=== PATIENT | female | born 2000 | race Caucasian/White ===

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

== ENCOUNTER 2019-02-08 01:55 | Inpatient (IN) | payer MEDICAID ==
[2019-02-08] MEDS ORDERED: PENICILLIN G POTASSIUM 5,000,000 UNIT in DEXTROSE 5%-WATER 100 ML IV ONE (02:18)
[2019-02-08] MEDS ORDERED: BETAMET ACET/BETAMET NA INJ 6 MG/1 ML IM ONE (02:20)
[2019-02-08] MEDS ORDERED: MISOPROSTOL 0.2 MG TABLET ONE (02:23)
[2019-02-08] MEDS ORDERED: OXYTOCIN 10 UNIT/ML VIAL ONE (02:23)
[2019-02-08] MEDS ORDERED: PHENYLEPHRINE HCL INJ/PF 10 MG/1 ML SDV ONE (02:24)
[2019-02-08] MEDS ORDERED: FENTANYL CITRATE INJ/PF 100 MCG/2 ML AMPUL ONE (02:24)
[2019-02-08] MEDS ORDERED: BETAMET ACET/BETAMET NA INJ 6 MG/1 ML ONE (02:24)
[2019-02-08] MEDS ORDERED: FENTANYL/BUPIVACAINE/NS/PF 300 MCG/150 ML RTUINJ EPI ONE (02:25)
[2019-02-08] MEDS ORDERED: BUPIVACAINE HCL 0.25 % INJ/PF (2.5 MG/1 ML) 30 ML VIAL ONE (02:25)
[2019-02-08] MEDS ORDERED: PENICILLIN G-K 5 MILLION UNIT VIAL ONE ×2 (02:25→06:07)
[2019-02-08] MEDS ORDERED: OXYTOCIN/NORMAL SALINE 20 UNIT/1,000 ML RTUINJ ONE (02:25)
[2019-02-08] MEDS ORDERED: LIDOCAINE 1% INJ-PF (10 MG/ML) 30 ML SDV ONE (02:25)
[2019-02-08] MEDS ORDERED: EPHEDRINE SULFATE INJ 50 MG/1 ML AMPULE ONE (02:25)
[2019-02-08 02:35] LABS: APPEARANCE,URINE CLEAR; BILIRUBIN,URINE NEGATIVE (NEGATIVE); COLOR,URINE YELLOW; GLUCOSE, URINE NEGATIVE (NEGATIVE); KETONES,URINE NEGATIVE (NEGATIVE); LEUKOCYTE ESTERASE,URINE NEGATIVE (NEGATIVE); NITRITE,URINE NEGATIVE (NEGATIVE); PROTEIN,URINE NEGATIVE (NEGATIVE); URINE SPECIFIC GRAVITY 1.013
[2019-02-08] MEDS: RINGERS SOLUTION,LACTATED 1,000 ML IV PRN ×2 (02:35→06:59)
[2019-02-08 02:53] LABS: URINE AMPHETAMINES SCREEN NEGATIVE; URINE BARBITURATES SCREEN NEGATIVE; URINE BENZODIAZEPINES SCREEN NEGATIVE; URINE COCAINE SCREEN NEGATIVE; URINE METHADONE SCREEN NEGATIVE; URINE PHENCYCLIDINE SCREEN NEGATIVE
[2019-02-08 03:04] LABS: URINE MARIJUANA (THC) SCREEN UNCONFIRMED POSITIVE
[2019-02-08 03:05] LABS: ABSOLUTE LYMPHOCYTES (AUTO) 1.5 10^3/uL (0.5-4.7); ABSOLUTE MONOCYTES (AUTO) 0.4 10^3/uL (0.1-1.4); ABSOLUTE NEUT (AUTO) 10.1 10^3/uL (1.7-8.2); BASOPHILS % (AUTO) 0.2 % (0-2); HEMATOCRIT 34.1 % (36.0-47.0); HEMOGLOBIN 11.5 g/dL (12.0-15.5); LYMPHOCYTES % (AUTO) 12.6 % (13-45); MEAN CORPUSCULAR HEMOGLOBIN 28.3 pg (27.0-33.4); MEAN CORPUSCULAR HGB CONC 33.6 g/dL (32.0-36.0); MEAN CORPUSCULAR VOLUME 84 fl (80-97); MONOCYTES % (AUTO) 3.3 % (3-13); PLATELET COUNT 228 10^3/uL (150-450); RED BLOOD COUNT 4.05 10^6/uL (3.72-5.28); RED CELL DISTRIBUTION WIDTH 13.3 % (11.5-14.0); SEGMENTED NEUTROPHILS % (AUTO) 83.9 % (42-78); TOTAL CELLS COUNTED % (AUTO) 100 %; WHITE BLOOD COUNT 12.1 10^3/uL (4.0-10.5)
--- NOTE | 2019-02-08 03:52 | Admission Physical ---
Datetime Report Generated by CPN: 02/08/2019 03:52 CURRENT ADMISSION Chief Complaint: Suspected Ruptured Membranes Indication for Induction: Not Applicable Admit Impression : Term, Intrauterine Admit Plan: Admit to Unit; Initiate Labor Protocol ALLERGIES Medication Allergies: No Known Allergies (02/08/2019) OBSTETRICAL HISTORY EDC: 03/13/2019 00:00 : 1 Para: 0 Term: 0 : 0 SAB: 0 IAB: 0 Livin (Annotations: Data stored by N on behalf of user) Gestational Diabetes: No Rh Sensitization: No Incompetent Cervix: No NATACHA: No Infertility: No ART Treatment: No Uterine Anomaly: No IUGR: No Hx Previous C/S: No Macrosomia: No Hx Loss/Stillborn: No PIH: No Hx : No Placenta Previa/Abruption: No Depression/PP Depression: No PTL/PROM: Yes Post Hemorrhage: No Current Procedures: Ultrasound; NST Obstetrical History Comments: g1-current , srom at 35 weeks and 2 days SEE RECORDS Alcohol: No Marijuana : Yes Marijuana Comments: patient denies, positive on urine test Cocaine: No Other Illicit Drugs: No Cigarettes: Current Everyday Smoker. 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: No Heart Disease: No Hosp/Surgery: Yes Autoimmune Disorder: No Anesthetic Complications: No Kidney Disease: No Abnormal Pap Smear: No Neuro/Epilepsy: No Psychiatric Disorders: No Other Medical Diseases: No Hepatitis/Liver Disease: No Significant Family History: No Varicosities/Phlebitis: No Trauma/Violence : No Thyroid Dysfunction: No Medical History Comments: smoker, foot surgery, asthma, positive marijuana INFECTIOUS HISTORY Gonorrhea: No Genital Herpes: No Chlamydia: No Tuberculosis: No Syphilis: No Hepatitis: No HIV/AIDS Exposure: No Rash or Viral Illness: No HPV: No PHYSICAL EXAM General: Normal HEENT: Normal Neurologic: Normal Thyroid: Normal Heart: Normal Lungs: Normal Breast: Deferred Back: Normal Abdomen: Normal Genitourinary Exam: Normal Extremities: Normal DTRs: Normal Pelvic Type: Adequate FETUS A EGA: 35.2 Monitoring: External US PLANS FOR LABOR AND DELIVERY Labor and Delivery: None Pain Management: Epidural Feeding Preference: Breast Circumcision: N/A INFORMED CONSENT Signature: with User ID: [email or web address]
[2019-02-08] MEDS ORDERED: PENICILLIN G POTASSIUM 2,500,000 UNIT in DEXTROSE 5%-WATER 50 ML IV SCH (06:19)
[2019-02-08] MEDS ORDERED: ACETAMINOPHEN 650 MG SUPP.RECT PR PRN (06:20)
[2019-02-08] MEDS ORDERED: PROMETHAZINE HCL 25 MG SUPP.RECT PR PRN (06:20)
[2019-02-08] MEDS ORDERED: MEASLES,MUMPS&RUBELLA VACC/PF 0.5 ML VIAL SUBCUT PRN (06:20)
[2019-02-08] MEDS ORDERED: NA PHOS,M-B/NA PHOS,DI-BA (ADULT) 133 ML ENEMA PR PRN (06:20)
[2019-02-08] MEDS ORDERED: DIPHENHYDRAMINE HCL 25 MG CAPSULE PO PRN (06:20)
[2019-02-08] MEDS ORDERED: PROMETHAZINE HCL INJ 25 MG/1 ML VIAL IV PRN (06:20)
[2019-02-08] MEDS ORDERED: MAGNESIUM HYDROXIDE SUSP 30 ML UDCUP PO PRN (06:20)
[2019-02-08] MEDS ORDERED: OXYTOCIN/NORMAL SALINE 20 UNIT/1,000 ML RTUINJ IV PRN (06:20)
[2019-02-08] MEDS ORDERED: DIBUCAINE 1% OINTMENT 56 GM TP PRN (06:20)
[2019-02-08] MEDS ORDERED: ZOLPIDEM TARTRATE 5 MG TABLET PO PRN (06:20)
[2019-02-08] MEDS ORDERED: DIPH/PERTUSS(ACELL)/TETANUS VAC/PF 0.5 ML SYR (>=10YO) IM PRN (06:20)
[2019-02-08] MEDS ORDERED: BENZOCAINE/MENTHOL AEROSOL SPRAY 56 ML TOP PRN (06:20)
[2019-02-08] MEDS ORDERED: ACETAMINOPHEN WITH CODEINE #3 TABLET PO PRN (06:20)
[2019-02-08] MEDS ORDERED: PSEUDOEPHEDRINE HCL 30 MG TABLET PO PRN (06:20)
[2019-02-08] MEDS ORDERED: PROMETHAZINE HCL 25 MG TABLET PO PRN (06:20)
[2019-02-08] MEDS ORDERED: GLYCERIN/WITCH HAZEL LEAF 1 EACH MED..WIPE TP PRN (06:20)
--- NOTE | 2019-02-08 09:04 | Delivery Summary ---
Del Sum A-C Datetime Report Generated by CPN: 02/08/2019 09:04 DELIVERY PERSONNEL DELIVERY PERSONNEL: [id number] Delivery Doctor:: Jose Maria Dhaliwal MD Labor and Delivery Nurse:: Juliet Espinoza RNstaff midwife Nurse:: Vanessa Cardona RN Nursery Nurse:: TAYLER Nelson Nursery Nurse:: TAYLER Francis Police Patrol Lieutenant/FIELD CROP HARVEST CONTRACTOR: public health sanitarian technician shanique MATERNAL INFORMATION Delivery Anesthesia: Epidural Medications After Delivery: Pitocin Drip 20 Units/1000ml NSS Delivery QBL: 100 Maternal Complications: Premature Rupture of Membranes LABOR SUMMARY EDC: 03/13/2019 00:00 No. Babies in Womb: 1 Attempted: No Labor Anesthesia: Epidural LABOR INFORMATION Reason for Induction: Not Applicable Onset of Labor: 02/07/2019 23:30 Complete Dilatation: 02/08/2019 04:52 Oxytocin: N/A Group B Beta Strep: unknown Antibiotics # of Doses: 1 Antibiotics Time of Last Dose: 0234 Name of Antibiotic Given: PCN Steroids Given: Partial Course; < 24 Hours before Delivery Reason Steroids Not Administered: Not Applicable MEMBRANES Membranes Rupture Method: Spontaneous Rupture of Membranes: 02/07/2019 23:30 Length of Rupture (hr): 6.73 Amniotic Fluid Color: Clear Amniotic Fluid Amount: Large Amniotic Fluid Odor: Normal STAGES OF LABOR Stage 1 hr: 5 Stage 1 min: 22 Stage 2 hr: 1 Stage 2 min: 22 Stage 3 hr: 0 Stage 3 min: 2 Total Time in Labor hr: 6 Total Time in Labor min: 46 VAGINAL DELIVERY Episiotomy: None Laceration #1: Perineal Laceration Extension #1: N/A Laceration Repair: No Sponge Count Correct: N/A Sharps Count Correct: N/A CSECTION DELIVERY Primary Indication: N/A Secondary Indication: N/A CSection Incidence: N/A Labor: N/A Elective: N/A CSection Incision: N/A BABY A INFORMATION Delivery Date/Time: 02/08/2019 06:14 Method of Delivery: Vaginal Born in Route : No : N/A Forceps: N/A Vacuum Extraction: N/A Shoulder Dystocia : No PRESENTATION/POSITION BABY A Presentation: Cephalic Cephalic Presentation: Vertex Vertex Position: Right Occipital Anterior Breech Presentation: N/A PLACENTA INFORMATION BABY A Placenta Delivery Time : 02/08/2019 06:16 Placenta Method of Delivery: Spontaneous Placenta Status: Delivered SCORES BABY A Heart Rate 1 min: >100 bpm Resp Effort 1 min: Good Cry Reflex Irritability 1 min: Cough or Sneeze or Pulls Away Muscle Tone 1 min: Some Flexion of Extremities Color 1 min: Body Hominy, Extremities Blue Resuscitation Effort 1 min: Tactile Stimulation SCORE 1 MIN: 8 Heart Rate 5 min: >100 bpm Resp Effort 5 min: Good Cry Reflex Irritability 5 min: Cough or Sneeze or Pulls Away Muscle Tone 5 min: Some Flexion of Extremities Color 5 min: Body Hominy, Extremities Blue Resuscitation Effort 5 min: Tactile Stimulation SCORE 5 MIN: 8 INFORMATION BABY A Gestational Age at Delivery: 35.2 Gestational Status: Late - 34- 36.6 Weeks Outcome : Liveborn Condition : Stable Infant Sex: Female IDENTIFICATION BABY A Verification Date/Time: 02/08/2019 07:00 ID Band Number: [id number] Mother's Name Verified: Yes Infant RN Verifying Infant: Myrna Cardona TAYLER Additional Verifying Personnel: Matt Espinoza RN WEIGHT/LENGTH BABY A Birthweight (gm): 2375 Weight (lb): 5 Weight (oz): 4 Length (in): 18.25 Infant Length (cm): 46.36 CORD INFORMATION BABY A No. Cord Vessels: 3 Nuchal Cord : N/A Cord Blood Taken: Yes-For Storage (Mom's Blood type +) Infant Suction: Mouth ASSESSMENT BABY A Infant Complications: None Physical Findings at Delivery: Within Normal Limits Respirations: Grunting Skin to Skin: Yes Torsion Spring Coiling Machine Setter/ALS Called : No Care By: tayler nelson and tayler francis Transferred To: Remains with Mother BABY B INFORMATION : N/A SIGNATURES Signature: with User ID: [email or web address]
[2019-02-08] MEDS ORDERED: INFLUENZA QUAD (6MOS+) 2019-20 VAC 0.5 ML SYR IM ONE (09:34)
[2019-02-08] MEDS: FAMOTIDINE 20 MG TABLET PO SCH ×2 (10:55→22:00)
[2019-02-08] MEDS: PRENATAL VITAMIN W DHA CAPSULE PO SCH (10:55)
[2019-02-08] MEDS: SENNOSIDES/DOCUSATE 8.6-50 MG 1 EACH TABLET PO SCH (10:55)
[2019-02-08] MEDS: DOCUSATE SODIUM 100 MG CAPSULE PO SCH ×2 (10:55→17:52)
[2019-02-08] MEDS: FERROUS SULFATE 325 MG TABLET PO SCH ×2 (10:55→17:52)
[2019-02-08] MEDS: IBUPROFEN 800 MG TABLET PO SCH ×2 (14:53→22:00)
[2019-02-09] MEDS: IBUPROFEN 800 MG TABLET PO SCH ×3 (05:31→21:56)
[2019-02-09 07:06] LABS: HEMOGLOBIN 10.3 g/dL (12.0-15.5); MEAN CORPUSCULAR HEMOGLOBIN 28.7 pg (27.0-33.4); MEAN CORPUSCULAR HGB CONC 34.3 g/dL (32.0-36.0); MEAN CORPUSCULAR VOLUME 84 fl (80-97); PLATELET COUNT 219 10^3/uL (150-450); RED BLOOD COUNT 3.59 10^6/uL (3.72-5.28); WHITE BLOOD COUNT 14.4 10^3/uL (4.0-10.5)
[2019-02-09] MEDS: DOCUSATE SODIUM 100 MG CAPSULE PO SCH ×2 (09:28→17:14)
[2019-02-09] MEDS: PRENATAL VITAMIN W DHA CAPSULE PO SCH (09:28)
[2019-02-09] MEDS: SENNOSIDES/DOCUSATE 8.6-50 MG 1 EACH TABLET PO SCH (09:28)
[2019-02-09] MEDS: FERROUS SULFATE 325 MG TABLET PO SCH ×2 (09:28→17:14)
[2019-02-09] MEDS: FAMOTIDINE 20 MG TABLET PO SCH ×2 (10:37→21:57)
--- NOTE | 2019-02-09 10:55 | PDOC PROGRESS REPORT ---
Subjective-OB Progress Note for:: 02/09/19 Subjective: Pt doing well, no concerns. She reports light bleeding, reg diet and voiding without difficulty. Physical Exam (OB) Vital Signs: Temp Pulse Resp BP Pulse Ox 97.9 F 62 18 111/59 L 100 02/09/19 07:13 02/09/19 07:13 02/09/19 07:13 02/09/19 07:13 02/09/19 07:13 Intake & Output 02/08/19 02/09/19 02/10/19 06:59 06:59 06:59 Intake Total 177 700 Output Total 1 Balance 177 699 Weight 55 kg - PIH/Pre-Eclampsia Headache: Absent Epigastric Pain: No Visual Changes: No - Lochia Lochia Amount: Scant < 10 ml Lochia Color: Rubra/Red - Abdomen Description: Tender, Soft Hernia Present: No Fundal Description: Firm, Midline Fundal Height: u/u - u/2 Objective-Diagnostic Laboratory: 02/09/19 06:53 02/09/19 06:53 WBC 14.4 H RBC 3.59 L Hgb 10.3 L Hct 30.0 L MCV 84 MCH 28.7 MCHC 34.3 RDW 13.0 Plt Count 219 Assessment and Plan(PN) - Assessment and Plan (1) Vaginal delivery Is this a current diagnosis for this admission?: Yes - Time Spent with Patient Time with patient: Less than 15 minutes Medications reviewed and adjusted accordingly: Yes - Disposition Anticipated Discharge: Home Within: within 24 hours
[2019-02-10 01:56] LABS: CHLAM PCR NOT DETECTED (NOT DETECT)
[2019-02-10] MEDS: IBUPROFEN 800 MG TABLET PO SCH (07:12)
--- NOTE | 2019-02-10 10:04 | PDOC PROGRESS REPORT ---
Subjective-OB Progress Note for:: 02/10/19 Subjective: Doing well, OOB, voiding, scant bleeding Physical Exam (OB) Vital Signs: Temp Pulse Resp BP Pulse Ox 98.0 F 75 14 108/62 98 02/10/19 07:24 02/10/19 07:24 02/10/19 07:24 02/10/19 07:24 02/10/19 07:24 Intake & Output 02/09/19 02/10/19 02/11/19 06:59 06:59 06:59 Intake Total 700 Output Total 1 Balance 699 - PIH/Pre-Eclampsia DTR's: 2 + Clonus: Negative Headache: Absent Epigastric Pain: No Visual Changes: No - Lochia Lochia Amount: Small 10-25 ml Lochia Color: Rubra/Red - Abdomen Description: Soft, Flat Hernia Present: No Fundal Description: Firm, Midline Fundal Height: u/u - u/2 > 4/u*- Describe: well below Objective-Diagnostic Laboratory: 02/09/19 06:53 Assessment and Plan(PN) - Assessment and Plan (1) Vaginal delivery Is this a current diagnosis for this admission?: Yes (2) Marijuana abuse Is this a current diagnosis for this admission?: Yes - Time Spent with Patient Time with patient: Less than 15 minutes Medications reviewed and adjusted accordingly: Yes - Disposition Anticipated Discharge: Home Within: within 24 hours
--- NOTE | 2019-02-10 10:08 | PDOC DISCHARGE SUMMARY ---
Impression - Admit/DC Date/PCP Admission Date/Primary Care Provider: 02/08/19 02:22 Discharge Date: 02/10/19 - Discharge Diagnosis (1) Vaginal delivery Is this a current diagnosis for this admission?: Yes (2) Marijuana abuse Is this a current diagnosis for this admission?: Yes - Additional Information Resuscitation Status: Full Code Discharge Diet: As Tolerated, Regular Discharge Activity: Activity As Tolerated, No Lifting Over 10 Pounds, No Lifting/Push/Pulling, Pelvic Rest Referrals: YOAN ROSADO MD [ACTIVE STAFF] - (RTC 4 weeks) Home Medications: Pnv No.95/Ferrous Fum/Folic AC [ Vitamins Tablet] 1 tab PO DAILY 02/08/19 HPI Gestational Age: 35.2 Reason(s) for Admission: PROM Procedures: Ultrasound Intrapartum Procedure(s): Spontaneous Vaginal Delivery Complication(s): Laceration-Perineal Laceration-Degree: 1st - GBS unknown Hospital Course Hospital Course: routine Results Laboratory Results: WBC 14.4 10^3/uL (4.0-10.5) H 02/09/19 06:53 RBC 3.59 10^6/uL (3.72-5.28) L 02/09/19 06:53 Hgb 10.3 g/dL (12.0-15.5) L 02/09/19 06:53 Hct 30.0 % (36.0-47.0) L 02/09/19 06:53 MCV 84 fl (80-97) 02/09/19 06:53 MCH 28.7 pg (27.0-33.4) 02/09/19 06:53 MCHC 34.3 g/dL (32.0-36.0) 02/09/19 06:53 RDW 13.0 % (11.5-14.0) 02/09/19 06:53 Plt Count 219 10^3/uL (150-450) 02/09/19 06:53 Lymph % (Auto) 12.6 % (13-45) L 02/08/19 02:48 [place] % (Auto) 3.3 % (3-13) 02/08/19 02:48 Eos % (Auto) 0.0 % (0-6) 02/08/19 02:48 Baso % (Auto) 0.2 % (0-2) 02/08/19 02:48 Absolute Neuts (auto) 10.1 10^3/uL (1.7-8.2) H 02/08/19 02:48 Absolute Lymphs (auto) 1.5 10^3/uL (0.5-4.7) 02/08/19 02:48 Absolute Monos (auto) 0.4 10^3/uL (0.1-1.4) 02/08/19 02:48 Absolute Eos (auto) 0.0 10^3/uL (0.0-0.6) 02/08/19 02:48 Absolute Basos (auto) 0.0 10^3/uL (0.0-0.2) 02/08/19 02:48 Seg Neutrophils % 83.9 % (42-78) H 02/08/19 02:48 Urine Color YELLOW 02/08/19 02:00 Urine Appearance CLEAR 02/08/19 02:00 Urine pH 7.0 (5.0-9.0) 02/08/19 02:00 Ur Specific Slater 1.013 02/08/19 02:00 Urine Protein NEGATIVE mg/dL (NEGATIVE) 02/08/19 02:00 Urine Glucose (UA) NEGATIVE mg/dL (NEGATIVE) 02/08/19 02:00 Urine Ketones NEGATIVE mg/dL (NEGATIVE) 02/08/19 02:00 Urine Blood SMALL (NEGATIVE) H 02/08/19 02:00 Urine Nitrite NEGATIVE (NEGATIVE) 02/08/19 02:00 Urine Bilirubin NEGATIVE (NEGATIVE) 02/08/19 02:00 Urine Urobilinogen 2.0 mg/dL (<2.0) H 02/08/19 02:00 Ur Leukocyte Esterase NEGATIVE (NEGATIVE) 02/08/19 02:00 Urine WBC (Auto) 4 /HPF 02/08/19 02:00 Urine RBC (Auto) 14 /HPF 02/08/19 02:00 Squamous Epi Cells Auto 1 /HPF 02/08/19 02:00 Urine Mucus (Auto) RARE /LPF 02/08/19 02:00 Urine Ascorbic Acid NEGATIVE (NEGATIVE) 02/08/19 02:00 Membranes Rupture POSITIVE (NEGATIVE) H 02/08/19 02:06 Urine Opiates Screen NEGATIVE 02/08/19 02:00 Urine Methadone Screen NEGATIVE 02/08/19 02:00 Ur Barbiturates Screen NEGATIVE 02/08/19 02:00 Ur Phencyclidine Scrn NEGATIVE 02/08/19 02:00 Ur Amphetamines Screen NEGATIVE 02/08/19 02:00 U Benzodiazepines Scrn NEGATIVE 02/08/19 02:00 Urine Cocaine Screen NEGATIVE 02/08/19 02:00 U Marijuana (THC) Screen UNCONFIRMED POSITIVE 02/08/19 02:00 RPR NONREACTIVE (NONREACTIVE) 02/08/19 02:48 Chlamydia DNA (PCR) NOT DETECTED (NOT DETECT) 02/09/19 15:32 N.gonorrhoeae DNA (PCR) NOT DETECTED (NOT DETECT) 02/09/19 15:32 Blood Type A POSITIVE 02/08/19 02:48 Antibody Screen NEGATIVE 02/08/19 02:48 Plan Health Concerns: routine Plan of Treatment: routine, no smoking Goals: no complications Time Spent: Less than 30 Minutes
[2019-02-10] MEDS: PRENATAL VITAMIN W DHA CAPSULE PO SCH (10:26)
[2019-02-10] MEDS: FERROUS SULFATE 325 MG TABLET PO SCH (10:26)
[2019-02-10] MEDS: DOCUSATE SODIUM 100 MG CAPSULE PO SCH (10:26)
[2019-02-10] MEDS: SENNOSIDES/DOCUSATE 8.6-50 MG 1 EACH TABLET PO SCH (10:27)
[2019-02-10 10:54] VITALS: BP 111/61
[2019-02-10] MEDS: FAMOTIDINE 20 MG TABLET PO SCH (13:10)
== END 2019-02-10 11:18 | disposition home or self-care (01) | DRG 806 ==
LOC: LC 01:55 → LR 02:22 → 2S 08:47
PROVIDERS: ADMIT Obstetrics & Gynecology Gynecology; ATTEND Obstetrics & Gynecology Gynecology
PROC: 10E0XZZ Delivery of Products of Conception, External Approach (ICD-10-PCS; principal; 2019-02-08)
PROC: 3E0234Z Introduction of Serum, Toxoid and Vaccine into Muscle, Percutaneous Approach (ICD-10-PCS; 2019-02-10)
DX: O42.113 Preterm premature rupture of membranes, onset of labor more than 24 hours following rupture, third trimester (principal); O99.324 Drug use complicating childbirth; Z37.0 Single live birth; O99.334 Smoking (tobacco) complicating childbirth; F17.210 Nicotine dependence, cigarettes, uncomplicated; F12.10 Cannabis abuse, uncomplicated; Z3A.35 35 weeks gestation of pregnancy; Z23 Encounter for immunization
CPT/HCPCS: 36415; 80307; 80349; 81001; 84112; 85025; 85027; 86592; 86850; 86900; 86901; 87491; 87591; 90686; 94760; G0480; J0702; J2370; J2540; J2590; J3010; J3490; J7060